=== PATIENT | male | born 1965 | race Two or more races ===

== ENCOUNTER 2024-09-18 09:03 | Outpatient (CLI) | payer OTHER | END 2024-09-18 09:17 | disposition home or self-care (01) | LOC: RAD 09:03 | PROVIDERS: ATTEND Physical Medicine & Rehabilitation Hospice and Palliative Medicine | DX: M25.511 Pain in right shoulder (principal); M75.41 Impingement syndrome of right shoulder; M75.101 Unspecified rotator cuff tear or rupture of right shoulder, not specified as traumatic ==